=== PATIENT | male | born 1955 | race Caucasian/White ===

== ENCOUNTER 2019-06-22 11:00 | Inpatient (IN) | payer MEDICARE, BC ==
[2019-08-24] MEDS ORDERED: Sodium Chloride 0.9% 10 ML Syringe FLUSH PRN (00:01)
[2019-08-24] MEDS ORDERED: Lidocaine 1%/Sod Bicarbonate in NS 8.4% 1 ML Syringe IDERM PRN (00:01)
[2019-08-24] MEDS ORDERED: Pregabalin 25 MG Cap PO SCH (06:00)
[2019-08-24] MEDS ORDERED: oxyCODONE ER 10 MG TAB.ER PO SCH (06:00)
[2019-08-24] MEDS ORDERED: Acetaminophen 325 MG Tab PO SCH (06:00)
[2019-08-24] MEDS ORDERED: Morphine Sulfate 8 MG, EPINEPHrine 0.3 MG, Cefuroxime 750 MG, Ketorolac 30 MG, Sodium C... PRN ×5 (06:46)
[2019-08-24] MEDS ORDERED: Sennosides 8.6 MG Tab PO PRN (06:48)
[2019-08-24] MEDS ORDERED: Morphine 2 MG/ML Syringe IVPUSH PRN (06:48)
[2019-08-24] MEDS ORDERED: Naloxone 0.4 MG/ML SDV IVPUSH PRN (06:48)
[2019-08-24] MEDS ORDERED: Ondansetron 4 MG/2 ML SDV IVPUSH PRN ×2 (06:48→09:47)
[2019-08-24] MEDS ORDERED: Magnesium Hydroxide 400 MG/5 ML Susp 30 ML Cup PO PRN (06:48)
[2019-08-24] MEDS ORDERED: Bisacodyl 5 MG Tab PO PRN (06:48)
[2019-08-24] MEDS ORDERED: Propofol 200 MG/20 ML SDV ONE ×2 (07:14→09:29)
[2019-08-24] MEDS ORDERED: Midazolam 1 MG/ML 2 ML SDV ONE (07:15)
[2019-08-24] MEDS: Lactated Ringers 1,000 ML IV SCH ×2 (07:25→11:02)
--- NOTE | 2019-08-24 07:40 | PCM.PREANE ---
Preanesthetic Assessment - Anesthesia/Transfusion/Family Hx Anesthesia History: Prior Anesthesia Without Reaction Transfusion History: No Prior Transfusion(s) - Review of Systems General: No Symptoms Pulmonary: No Symptoms Cardiovascular: No Symptoms Gastrointestinal: No Symptoms Neurological: No Symptoms Other: Reports: None - Physical Assessment NPO Status Date: 08/23/19 NPO Status Time: 20:30 Vital Signs: Last Vital Signs Temp 97.9 F 08/24/19 07:00 Pulse 70 08/24/19 07:00 Resp 16 08/24/19 07:00 BP 117/73 08/24/19 07:00 Pulse Ox 94 L 08/24/19 07:00 Height: 1.93 m Weight: 107.955 kg ASA Class: 2 Mental Status: Alert & Oriented x3 Airway Class: Mallampati = 1 Dentition: Reports: Normal Dentition, Moonshine(s) Thyro-Mental Finger Breadths: 3 Mouth Opening Finger Breadths: 3 ROM/Head Extension: Full Lungs: Clear to Auscultation, Normal Respiratory Effort Cardiovascular: Regular Rate, Regular Rhythm - Lab Values: Laboratory Last Values MRSA (PCR) Negative 08/12/19 15:54 - Allergies Allergies/Adverse Reactions: Allergies Allergy/AdvReac Type Severity Reaction Status Date / Time No Known Allergies Allergy Verified 08/24/19 07:40 - Acknowledgements Anesthesia Type Planned: Spinal Pt an Appropriate Candidate for the Planned Anesthesia: Yes Alternatives and Risks of Anesthesia Discussed w Pt/Guardian: Yes Pt/Guardian Understands and Agrees with Anesthesia Plan: Yes PreAnesthesia Questionnaire HEENT History: Reports: Impaired Vision, Sinusitis, Other (See Below) Other HEENT History: tinnitis, wears glasses Cardiovascular History: Reports: High Cholesterol, Hypertension, Other (See Below) Other Cardiovascular History: irregular heart beat Gastrointestinal History: Reports: Cirrhosis, Hemorrhoids, Other (See Below) Other Gastrointestinal History: sclerosing cholangitis, ulcerative colitis Genitourinary History: Reports: Other (See Below) Other Genitourinary History: hematuria Musculoskeletal History: Reports: Osteoarthritis, Osteoporosis, Other (See Below ) Other Musculoskeletal History: bilateral hip pain, carpal tunnel syndrome Neurological History: Reports: None Psychiatric History: Reports: Anxiety, Depression, Other (See Below) Other Psychiatric History: malaise, sleep disturbance Endocrine/Metabolic History: Reports: Diabetes, Type II Hematologic History: Reports: None Immunologic History: Reports: None Oncologic (Cancer) History: Reports: Prostate, Squamous Cell Carcinoma Dermatologic History: Reports: Other (See Below) Other Dermatologic History: squamous cell carcinoma, actinic keratosis - Infectious Disease History Infectious Disease History: Reports: None - Past Surgical History HEENT Surgical History: Reports: Tonsillectomy GI Surgical History: Reports: Appendectomy, Colonoscopy Male Surgical History: Reports: Prostatectomy Musculoskeletal Surgical History: Reports: Other (See Below) Other Musculoskeletal Surgeries/Procedures:: left thumb repair - SUBSTANCE USE Smoking Status *Q: Never Smoker Recreational Drug Use History: No - HOME MEDS Home Medications: Home Meds Calcium/D3/Zinc/Copper/[place] [Citracal-D3 Maximum Plus Caplt] 2 tab PO DAILY [History] Cholecalciferol (Vitamin D3) [Vitamin D3] 5,000 unit PO DAILY 08/23/19 [History] Glucosam/Chondr/Collagn/Hyalur [Glucosamine & Chondroitin Cap] 1 cap PO BID 10/04 [History] Loperamide [Imodium] 2 mg PO ASDIRECTED PRN 08/23/19 [History] Mesalamine 2.4 g PO BID 08/23/19 [History] Multivitamin [Daily Leonardo] 1 tab PO DAILY 08/23/19 [History] lisinopriL [Lisinopril] 10 mg PO DAILY 08/23/19 [History] - CURRENT (IN HOUSE) MEDS Current Meds: Current Medications Acetaminophen (Tylenol) 975 mg PO ONETIME OMAR Stop: 08/24/19 14:00 Last Admin: 08/24/19 07:14 Dose: 975 mg Aspirin (Ecotrin) 325 mg PO BID OMAR Bisacodyl (Dulcolax) 5 mg PO DAILY PRN PRN Reason: Constipation Morphine Sulfate 8 mg/Epinephrine HCl 0.3 mg/Cefuroxime Sodium 750 mg/Ketorolac Tromethamine 30 mg/Sodium Chloride 7.9 ml 0 mg .XX ASDIRECTED PRN PRN Reason: Pain Stop: 08/24/19 12:00 Docusate Sodium (Colace) 100 mg PO BID OMAR Famotidine (Pepcid) 20 mg PO Q12H OMAR Lactated Ringer's (Ringers, Lactated) 1,000 mls @ 125 mls/hr IV ASDIRECTED OMAR Stop: 08/24/19 18:00 Cefazolin Sodium/Dextrose 2 gm (/ Premix) 50 mls @ 100 mls/hr IV Q8H OMAR Stop: 08/24/19 23:29 Ketorolac Tromethamine (Toradol) 15 mg IVPUSH Q6H PRN PRN Reason: Pain Lidocaine/Sodium Bicarbonate (Buffered Lidocaine 1% In Ns 8.4%) 0.25 ml IDERM ONETIME PRN PRN Reason: Prior to IV Start Stop: 08/24/19 18:00 Magnesium Hydroxide (Milk Of Magnesia) 30 ml PO BID PRN PRN Reason: Constipation Morphine Sulfate (Morphine) 2 mg IVPUSH Q2H PRN PRN Reason: Breakthrough Pain Naloxone HCl (Narcan) 0.1 mg IVPUSH Q5M PRN PRN Reason: Oversedation Ondansetron HCl (Zofran) 4 mg IVPUSH Q6H PRN PRN Reason: Nausea/Vomiting Oxycodone HCl (Oxycontin) 10 mg PO ONETIME [facility] Stop: 08/24/19 14:00 Last Admin: 08/24/19 07:14 Dose: 10 mg Oxycodone HCl (Oxycodone) 5 - 10 mg PO Q4H PRN PRN Reason: Pain Pregabalin (Lyrica) 50 mg PO ONETIME OMAR Stop: 08/24/19 14:00 Last Admin: 08/24/19 07:14 Dose: 50 mg Senna (Senna) 8.6 mg PO BID PRN PRN Reason: Constipation Sodium Chloride (Saline Flush) 10 ml FLUSH ASDIRECTED PRN PRN Reason: Keep Vein Open Stop: 08/24/19 18:00 Discontinued Medications Midazolam HCl (Versed 1 Mg/Ml) Confirm Administered Dose 2 mg .ROUTE .STK-MED ONE Stop: 08/24/19 07:16 Propofol (Diprivan 20 Ml) Confirm Administered Dose 400 mg .ROUTE .STK-MED ONE Stop: 08/24/19 07:15
[2019-08-24] MEDS ORDERED: Vancomycin 1 GM SDV ONE (07:41)
[2019-08-24] MEDS ORDERED: Iodine/Sodium Iodide 2% Tincture 30 ML Bottle ONE (07:41)
[2019-08-24] MEDS ORDERED: Bupivacaine 0.25% 10 ML SDV ONE (07:42)
--- NOTE | 2019-08-24 08:19 | PCM.CONS ---
H&P History of Present Illness - General Date of Service: 08/24/19 Admit Problem/Dx: Admission Diagnosis/Problem Admission Diagnosis/Problem Osteoarthritis of hip Source of Information: Patient, Old Records, Provider, RN, RN Notes Reviewed History Limitations: Reports: No Limitations - History of Present Illness Initial Comments - Free Text/Narative: Maxime Fernandes is a 64 yo male patient of Dr. Garcia who is post-operative day 0 of left SCOTT. Hospital medicine was consulted for post-operative medical care of the following listed medical conditions. At this time he is resting comfortably in bed. Pain is controlled. He denies any chest pain, shortness of breath, palpitations, nausea, or vomiting. He carries a history of: PVCs, Anxiety, Depression, Pre-DM, Hematuria, HLD, HTN, Leg numbness, cirrhosis, prostate cancer in remission, squamous cell carcinoma, tinnitus, sclerosing cholangitis, ulcerative colitis, osteoarthritis, osteoporosis, carpal tunnel syndrome, hemorrhoids. He is a non-smoker. He is a full code. His primary care provider is Dr. Downs. - Related Data Allergies/Adverse Reactions: Allergies Allergy/AdvReac Type Severity Reaction Status Date / Time No Known Allergies Allergy Verified 08/24/19 11:34 Home Medications: Home Meds Calcium/D3/Zinc/Copper/[place] [Citracal-D3 Maximum Plus Caplt] 2 tab PO DAILY [History] Cholecalciferol (Vitamin D3) [Vitamin D3] 5,000 unit PO DAILY 08/23/19 [History] Glucosam/Chondr/Collagn/Hyalur [Glucosamine & Chondroitin Cap] 1 cap PO BID 10/04 [History] Loperamide [Imodium] 2 mg PO ASDIRECTED PRN 08/23/19 [History] Mesalamine 2.4 g PO BID 08/23/19 [History] Multivitamin [Daily Leonardo] 1 tab PO DAILY 08/23/19 [History] lisinopriL [Lisinopril] 10 mg PO DAILY 08/23/19 [History] Past Medical History HEENT History: Reports: Impaired Vision, Sinusitis, Other (See Below) Other HEENT History: tinnitis, wears glasses Cardiovascular History: Reports: High Cholesterol, Hypertension, Other (See Below) Other Cardiovascular History: irregular heart beat Respiratory History: Reports: None Gastrointestinal History: Reports: Cirrhosis, Hemorrhoids, Other (See Below) Other Gastrointestinal History: sclerosing cholangitis, ulcerative colitis Genitourinary History: Reports: Other (See Below) Other Genitourinary History: hematuria [employer] History: Reports: None Musculoskeletal History: Reports: Osteoarthritis, Osteoporosis, Other (See Below ) Other Musculoskeletal History: bilateral hip pain, carpal tunnel syndrome Neurological History: Reports: None Psychiatric History: Reports: Anxiety, Depression, Other (See Below) Other Psychiatric History: malaise, sleep disturbance Endocrine/Metabolic History: Reports: Diabetes, Type II Hematologic History: Reports: None Immunologic History: Reports: None Oncologic (Cancer) History: Reports: Prostate, Squamous Cell Carcinoma Dermatologic History: Reports: Other (See Below) Other Dermatologic History: squamous cell carcinoma, actinic keratosis - Infectious Disease History Infectious Disease History: Reports: None - Past Surgical History HEENT Surgical History: Reports: Tonsillectomy GI Surgical History: Reports: Appendectomy, Colonoscopy Male Surgical History: Reports: Prostatectomy Musculoskeletal Surgical History: Reports: Other (See Below) Other Musculoskeletal Surgeries/Procedures:: left thumb repair Social & Family History - Tobacco Use Smoking Status *Q: Never Smoker - Caffeine Use Caffeine Use: Reports: Soda - Recreational Drug Use Recreational Drug Use: No H&P Review of Systems - Review of Systems: Review Of Systems: See Below General: Reports: No Symptoms. Denies: Fever, Chills HEENT: Reports: No Symptoms. Denies: Headaches, Sore Throat Pulmonary: Reports: No Symptoms. Denies: Shortness of Breath, Wheezing, Cough, Sputum Cardiovascular: Reports: No Symptoms. Denies: Chest Pain, Palpitations, Dyspnea on Exertion Gastrointestinal: Reports: No Symptoms. Denies: Abdominal Pain, Constipation, Diarrhea, Nausea, Vomiting Genitourinary: Reports: No Symptoms. Denies: Pain Musculoskeletal: Reports: Leg Pain Skin: Reports: No Symptoms. Denies: Cyanosis Psychiatric: Reports: No Symptoms. Denies: Confusion Neurological: Reports: Difficulty Walking, Gait Disturbance Hematologic/Lymphatic: Reports: No Symptoms. Denies: Anemia Immunologic: Reports: No Symptoms Exam - Exam Exam: See Below - Vital Signs Vital Signs: Last Vital Signs Temp 97.9 F 08/24/19 07:00 Pulse 70 08/24/19 07:00 Resp 16 08/24/19 07:00 BP 117/73 08/24/19 07:00 Pulse Ox 94 L 08/24/19 07:00 Weight: 238 lb - Exam Quality Assessment: DVT Prophylaxis General: Alert, Oriented, Cooperative. No: Mild Distress HEENT: Conjunctiva Clear, EACs Clear, Hearing Intact, Mucosa Moist & [place], Normal Nasal Septum, Posterior Pharynx Clear, PERRLA Neck: Supple, Trachea Midline Lungs: Clear to Auscultation, Normal Respiratory Effort Cardiovascular: Regular Rate, Regular Rhythm GI/Abdominal Exam: Normal Bowel Sounds, Soft, Non-Tender, No Distention, No Abnormal Bruit (Male) Exam: Deferred Rectal (Males) Exam: Deferred Back Exam: Normal Inspection, Full Range of Motion Extremities: Normal Capillary Refill, Leg Pain, Limited Range of Motion, Other ( Bandage in place on left leg. Bandage is dry and intact. Cooling pack in place. ) Peripheral Pulses: 3+: Radial (L), Radial (R), Dorsalis Pedis (L), Dorsalis Pedis (R) Skin: Warm, Dry, Intact Neurological: Cranial Nerves Intact (grossly ) Neuro Extensive - Mental Status: Alert, Oriented x3, Normal Mood/Affect Sepsis Event Note - Evaluation Sepsis Screening Result: No Definite Risk - Focused Exam Vital Signs: Vital Signs Temp Pulse Resp BP Pulse Ox 08/24/19 07:00 97.9 F 70 16 117/73 94 L Date Exam was Performed: 08/24/19 Time Exam was Performed: 15:34 Consult PN Assessment/Plan POD#: 0 (1) S/P total hip arthroplasty SNOMED Code(s): 621085984557, 509157569257 Code(s): Z96.649 - PRESENCE OF UNSPECIFIED ARTIFICIAL HIP JOINT Priority: High Current Visit: Yes Qualifiers: Laterality: left Qualified Code(s): Z96.642 - Presence of left artificial hip joint (2) Osteoarthritis SNOMED Code(s): 589432097 Code(s): M19.90 - UNSPECIFIED OSTEOARTHRITIS, UNSPECIFIED SITE Priority: High Current Visit: Yes Qualifiers: Osteoarthritis location: hip Osteoarthritis type: primary Laterality: left Qualified Code(s): M16.12 - Unilateral primary osteoarthritis, left hip (3) PVCs (premature ventricular contractions) SNOMED Code(s): 00781442 Code(s): I49.3 - VENTRICULAR PREMATURE DEPOLARIZATION Priority: Medium Current Visit: No (4) Anxiety SNOMED Code(s): 95863030 Code(s): F41.9 - ANXIETY DISORDER, UNSPECIFIED Priority: Low Current Visit: No (5) Depression SNOMED Code(s): 35812491 Code(s): F32.9 - MAJOR DEPRESSIVE DISORDER, SINGLE EPISODE, UNSPECIFIED Priority: Low Current Visit: No Qualifiers: Depression Type: other depression Qualified Code(s): F32.89 - Other specified depressive episodes (6) Type II diabetes mellitus SNOMED Code(s): 39564382 Code(s): E11.9 - TYPE 2 DIABETES MELLITUS WITHOUT COMPLICATIONS Priority: Medium Current Visit: Yes Qualifiers: Diabetes mellitus fdc insulin use: unspecified fdc insulin use status Diabetes mellitus complication status: with other specified complication Qualified Code(s): E11.69 - Type 2 diabetes mellitus with other specified complication (7) Hematuria SNOMED Code(s): 47976813 Code(s): R31.9 - HEMATURIA, UNSPECIFIED Priority: Low Current Visit: No Qualifiers: Hematuria type: unspecified type Qualified Code(s): R31.9 - Hematuria, unspecified (8) HLD (hyperlipidemia) SNOMED Code(s): 21791805 Code(s): E78.5 - HYPERLIPIDEMIA, UNSPECIFIED Priority: Low Current Visit : No Qualifiers: Hyperlipidemia type: unspecified Qualified Code(s): E78.5 - Hyperlipidemia , unspecified (9) HTN (hypertension) SNOMED Code(s): 98121023 Code(s): I10 - ESSENTIAL (PRIMARY) HYPERTENSION Priority: Medium Current Visit: No Qualifiers: Hypertension type: unspecified Qualified Code(s): I10 - Essential (primary ) hypertension (10) Leg numbness Priority: Low Current Visit: No (11) Cirrhosis SNOMED Code(s): 31615517 Code(s): K74.60 - UNSPECIFIED CIRRHOSIS OF LIVER Priority: Medium Current Visit: No Qualifiers: Hepatic cirrhosis type: unspecified hepatic cirrhosis Ascites presence: unspecified Qualified Code(s): K74.60 - Unspecified cirrhosis of liver (12) History of prostate cancer SNOMED Code(s): 449586508 Code(s): Z85.46 - PERSONAL HISTORY OF MALIGNANT NEOPLASM OF PROSTATE Priority: Low Current Visit: No (13) Sclerosing cholangitis SNOMED Code(s): 074894805 Code(s): K83.09 - OTHER CHOLANGITIS Priority: Medium Current Visit: No (14) Hemorrhoids SNOMED Code(s): 38349171 Code(s): K64.9 - UNSPECIFIED HEMORRHOIDS Priority: Low Current Visit: No Qualifiers: Hemorrhoid type: unspecified Qualified Code(s): K64.9 - Unspecified hemorrhoids (15) Ulcerative colitis SNOMED Code(s): 76927150 Code(s): K51.90 - ULCERATIVE COLITIS, UNSPECIFIED, WITHOUT COMPLICATIONS Priority: Medium Current Visit: No Qualifiers: Ulcerative colitis location: unspecified ulcerative colitis location Digestive disease complication type: unspecified complication Qualified Code(s ): K51.919 - Ulcerative colitis, unspecified with unspecified complications (16) Squamous cell carcinoma SNOMED Code(s): 219235294 Code(s): KAG6241 - Priority: Low Current Visit: No (17) Tinnitus SNOMED Code(s): 58811100, 719568164 Code(s): H93.19 - TINNITUS, UNSPECIFIED EAR Priority: Low Current Visit: No Qualifiers: Laterality: unspecified laterality Qualified Code(s): H93.19 - Tinnitus, unspecified ear (18) Carpal tunnel syndrome SNOMED Code(s): 75708422 Code(s): G56.00 - CARPAL TUNNEL SYNDROME, UNSPECIFIED UPPER LIMB Priority: Low Current Visit: No Qualifiers: Laterality: unspecified laterality Qualified Code(s): G56.00 - Carpal tunnel syndrome, unspecified upper limb Problem List Initiated/Reviewed/Updated: Yes Plan: I/P: Acute: S/P left total hip arthroplasty - post-operative day 0 -DVT prophylaxis and pain management per primary care team -PT/OT -IS/RT -Monitor oxygen saturation -Titrate oxygen as needed -Home medications reviewed -Vital signs stable -Monitor labs -Pre-operative Hgb was 17.5 -Pre-operative GFR was 57 -Pre-operative BUN was 19 -Pre-operative Total bilirubin was 1.20 -Pre-operative direct bilirubin was 0.31 -Pre-operative AST was 58 -Pre-operative ALT was 77 -Pre-operative Alk Phos was 164 -Pre-operative A1C was 6.2% -Pre-operative 12-lead EKG showed NSR with PVCs Osteoarthritis of left hip -Pain management per primary care team Chronic: PVCs Anxiety Depression Pre-DM Hematuria HLD HTN Leg numbness Cirrhosis Prostate cancer in remission Squamous cell carcinoma Tinnitus Sclerosing cholangitis Ulcerative colitis Osteoarthritis Osteoporosis Carpal tunnel syndrome Hemorrhoids Plan: CM for discharge planning GI prophylaxis Home medications as indicated Other orders as listed above Routine AM labs He is a full code. His PCP is Dr. Downs Thank you for allowing us to participate in the care of this patient!! Requesting Provider: Dr. Garcia Date Consult Requested: 08/24/19 Patient History Reviewed: Yes Admission H&P Reviewed: Yes Notified Requestor: Yes
[2019-08-24] MEDS ORDERED: Lactated Ringers 1,000 ML ONE (08:32)
[2019-08-24] MEDS ORDERED: ceFAZolin 1 GM Vial ONE (08:45)
[2019-08-24] MEDS ORDERED: Ondansetron 4 MG/2 ML SDV ONE (09:31)
[2019-08-24] MEDS: ceFAZolin 1 GM Vial ONE ×2 (09:36→09:37)
[2019-08-24] MEDS ORDERED: fentaNYL 100 MCG/2 ML SDV IVPUSH PRN (09:47)
[2019-08-24] MEDS ORDERED: HYDROmorphone 0.5 MG/0.5 ML Syringe IVPUSH PRN (09:47)
[2019-08-24] MEDS ORDERED: Loperamide 2 MG Cap PO PRN (10:15)
--- NOTE | 2019-08-24 10:21 | PCM.POSTAN ---
POST ANESTHESIA ASSESSMENT - MENTAL STATUS Mental Status: Somnolent - VITAL SIGNS Vital Signs: Last Vital Signs Temp 97.5 F 08/24/19 10:11 Pulse 70 08/24/19 07:00 Resp 18 08/24/19 10:11 BP 104/65 08/24/19 10:11 Pulse Ox 93 L 08/24/19 10:11 - RESPIRATORY Respiratory Status: Respiratory Rate WNL, Airway Patent, O2 Saturation Stable, Supplemental Oxygen - CARDIOVASCULAR CV Status: Pulse Rate WNL, Blood Pressure Stable - GASTROINTESTINAL GI Status: No Symptoms - PAIN Pain Score: 0 (post SAB) - POST OP HYDRATION Hydration Status: Adequate & Stable
--- NOTE | 2019-08-24 11:10 | CR ---
Pelvis and left hip: AP view of the pelvis was obtained as well as AP and crosstable lateral views left hip. Left hip prosthesis is seen. This has been recently placed. Components appear aligned. Underlying bony structures are intact. Multiple surgical clips are seen within the pelvis. Degenerative change partially visualized within the lumbar spine. Minimal joint space narrowing is noted with the right hip. Impression: 1. Recently placed left hip prosthesis. 2. Other nonacute findings as noted above. Diagnostic code #2 This report was dictated in MDT
[2019-08-24] MEDS: oxyCODONE 5 MG Tab PO PRN ×2 (13:58→20:26)
[2019-08-24] MEDS: ceFAZolin 2 GM in Premix Bag 1 BAG IV SCH (17:02)
[2019-08-24] MEDS: Ketorolac 15 MG/ML SDV IVPUSH PRN (17:14)
[2019-08-24] MEDS: Docusate Sodium 100 MG Cap PO SCH (20:25)
[2019-08-24] MEDS: Famotidine 20 MG Tab PO SCH (20:25)
[2019-08-24] MEDS: Acetaminophen 325 MG Tab PO PRN (20:25)
[2019-08-24] MEDS: MESALAMINE 2.4 GM PO SCH (21:50)
[2019-08-25] MEDS: Ketorolac 15 MG/ML SDV IVPUSH PRN (00:28)
[2019-08-25] MEDS: Acetaminophen 325 MG Tab PO PRN ×2 (00:28→05:06)
[2019-08-25] MEDS: oxyCODONE 5 MG Tab PO PRN ×2 (00:29→05:07)
[2019-08-25] MEDS: ceFAZolin 2 GM in Premix Bag 1 BAG IV SCH ×2 (00:30→08:56)
--- NOTE | 2019-08-25 07:52 | PCM.CONSN ---
- General Info Date of Service: 08/25/19 Admission Dx/Problem (Free Text): Admission Diagnosis/Problem Admission Diagnosis/Problem Osteoarthritis of hip Functional Status: Reports: Pain Controlled, Tolerating Diet, Ambulating, Urinating, Incentive Spirometry. Denies: New Symptoms - Review of Systems General: Reports: No Symptoms. Denies: Fever, Chills HEENT: Reports: No Symptoms. Denies: Headaches, Sore Throat Pulmonary: Reports: No Symptoms. Denies: Shortness of Breath, Cough, Sputum, Wheezing Cardiovascular: Reports: No Symptoms. Denies: Chest Pain, Palpitations, Dyspnea on Exertion Gastrointestinal: Reports: No Symptoms. Denies: Abdominal Pain, Constipation, Diarrhea, Nausea, Vomiting Genitourinary: Reports: No Symptoms. Denies: Pain Musculoskeletal: Reports: Leg Pain Skin: Reports: No Symptoms. Denies: Cyanosis Neurological: Reports: Difficulty Walking, Gait Disturbance. Denies: Confusion Psychiatric: Reports: No Symptoms - Patient Data Vitals - Most Recent: Last Vital Signs Temp 98.1 F 08/25/19 04:48 Pulse 79 08/25/19 04:48 Resp 18 08/25/19 04:48 BP 116/70 08/25/19 04:48 Pulse Ox 92 L 08/25/19 04:48 Weight - Most Recent: 244 lb 8 oz I&O - Last 24 Hours: Intake & Output 08/24/19 08/25/19 08/25/19 22:59 06:59 14:59 Intake Total 1060 1050 Output Total 1000 1700 Balance 60 -650 Lab Results Last 24 Hours: Laboratory Results - last 24 hr 08/24/19 08/25/19 08/25/19 Range/Units 07:28 05:42 05:44 WBC 7.85 (4.23-9.07) K/mm3 RBC 4.94 (4.63-6.08) M/mm3 Hgb 15.6 (13.7-17.5) gm/dl Hct 46.5 (40.1-51.0) % MCV 94.1 H (79.0-92.2) fl MCH 31.6 (25.7-32.2) pg MCHC 33.5 (32.2-35.5) g/dl RDW Std Deviation 47.9 H (35.1-43.9) fL Plt Count 126 L (163-337) K/mm3 MPV 10.0 (9.4-12.3) fl Sodium 137 (136-145) mEq/L Potassium 4.4 (3.5-5.1) mEq/L Chloride 102 (98-107) mEq/L Carbon Dioxide 26 (21-32) mEq/L Anion Gap 13.4 (5-15) BUN 18 (7-18) mg/dL Creatinine 1.4 H (0.7-1.3) mg/dL Est Cr Clr Drug Dosing 63.72 mL/min Estimated GFR (MDRD) 51 (>60) mL/min BUN/Creatinine Ratio 12.9 L (14-18) Glucose 141 H (80-115) mg/dL Calcium 8.5 (8.5-10.1) mg/dL Total Bilirubin 1.3 H (0.2-1.0) mg/dL AST 47 H (15-37) U/L ALT 56 (16-63) U/L Alkaline Phosphatase 123 H (46-116) U/L Total Protein 6.7 (6.4-8.2) g/dl Albumin 3.3 L (3.4-5.0) g/dl Globulin 3.4 gm/dL Albumin/Globulin Ratio 1.0 (1-2) Blood Type A POSITIVE Gel Antibody Screen Negative Med Orders - Current: Current Medications Acetaminophen (Tylenol) 650 mg PO Q4H PRN PRN Reason: Pain Last Admin: 08/25/19 05:06 Dose: 650 mg Aspirin (Ecotrin) 325 mg PO BID [facility] Bisacodyl (Dulcolax) 5 mg PO DAILY PRN PRN Reason: Constipation Cholecalciferol (Vitamin D3) 5,000 unit PO DAILY [facility] Docusate Sodium (Colace) 100 mg PO BID [facility] Last Admin: 08/24/19 20:25 Dose: 100 mg Famotidine (Pepcid) 20 mg PO Q12H [facility] Last Admin: 08/24/19 20:25 Dose: 20 mg Cefazolin Sodium/Dextrose 2 gm (/ Premix) 50 mls @ 100 mls/hr IV Q8H OMAR Stop: 08/25/19 09:14 Last Admin: 08/25/19 00:30 Dose: 100 mls/hr Ketorolac Tromethamine (Toradol) 15 mg IVPUSH Q6H PRN PRN Reason: Pain Last Admin: 08/25/19 00:28 Dose: 15 mg Lisinopril (Prinivil) 10 mg PO DAILY [facility] Loperamide HCl (Imodium) 2 mg PO ASDIRECTED PRN PRN Reason: Diarrhea Magnesium Hydroxide (Milk Of Magnesia) 30 ml PO BID PRN PRN Reason: Constipation Morphine Sulfate (Morphine) 2 mg IVPUSH Q2H PRN PRN Reason: Breakthrough Pain Multivitamins (Thera) 1 each PO DAILY [facility] Naloxone HCl (Narcan) 0.1 mg IVPUSH Q5M PRN PRN Reason: Oversedation Ondansetron HCl (Zofran) 4 mg IVPUSH Q6H PRN PRN Reason: Nausea/Vomiting Oxycodone HCl (Oxycodone) 5 - 10 mg PO Q4H PRN PRN Reason: Pain Last Admin: 08/25/19 05:07 Dose: 10 mg Mesalamine [ (Mesalamine] 2.4 G) 0 each PO BID [facility] Last Admin: 08/24/19 21:50 Dose: Not Given Senna (Senna) 8.6 mg PO BID PRN PRN Reason: Constipation Discontinued Medications Acetaminophen (Tylenol) 975 mg PO ONETIME [facility] Stop: 08/24/19 14:00 Last Admin: 08/24/19 07:14 Dose: 975 mg Bupivacaine HCl (Sensorcaine-Mpf 0.25%) Confirm Administered Dose 30 ml .ROUTE .STK-MED ONE Stop: 08/24/19 07:43 Last Admin: 08/24/19 09:41 Dose: 30 ml Cefazolin Sodium (Ancef) Confirm Administered Dose 2 gm .ROUTE .STK-MED ONE Stop: 08/24/19 07:43 Last Admin: 08/24/19 09:37 Dose: 2 gm Cefazolin Sodium (Ancef) Confirm Administered Dose 2 gm .ROUTE .STK-MED ONE Stop: 08/24/19 08:46 Morphine Sulfate 8 mg/Epinephrine HCl 0.3 mg/Cefuroxime Sodium 750 mg/Ketorolac Tromethamine 30 mg/Sodium Chloride 7.9 ml 0 mg .XX ASDIRECTED PRN PRN Reason: Pain Stop: 08/24/19 12:00 Last Admin: 08/24/19 09:41 Dose: 788.3 mg Fentanyl (Sublimaze) 50 mcg IVPUSH Q5M PRN PRN Reason: Pain Stop: 08/24/19 12:00 Hydromorphone HCl (Dilaudid) 0.5 mg IVPUSH Q10M PRN PRN Reason: Pain (severe 7-10) Stop: 08/24/19 12:00 Lactated Ringer's (Ringers, Lactated) 1,000 mls @ 125 mls/hr IV ASDIRECTED [facility] Stop: 08/24/19 18:00 Last Admin: 08/24/19 11:02 Dose: 125 mls/hr Lactated Ringer's (Ringers, Lactated) Confirm Administered Dose 1,000 mls @ as directed .ROUTE .STK-MED ONE Stop: 08/24/19 08:33 Iodine (Iodine 2% Mild Tincture) Confirm Administered Dose 30 ml .ROUTE .STK- MED ONE Stop: 08/24/19 07:42 Last Admin: 08/24/19 09:35 Dose: 18 ml Lidocaine/Sodium Bicarbonate (Buffered Lidocaine 1% In Ns 8.4%) 0.25 ml IDERM ONETIME PRN PRN Reason: Prior to IV Start Stop: 08/24/19 18:00 Last Admin: 08/24/19 07:25 Dose: 0.25 ml Midazolam HCl (Versed 1 Mg/Ml) Confirm Administered Dose 2 mg .ROUTE .STK-MED ONE Stop: 08/24/19 07:16 Miscellaneous Medication (Phenylephrine 1 Mg/10 Ml-Ns) Confirm Administered Dose 1 mg IV .STK-MED ONE Stop: 08/24/19 08:43 Non-Formulary Medication (Calcium/D3/Zinc/Copper/[place] [Citracal-D3 Maximum Plus Caplt]) 2 tab PO DAILY [facility] Ondansetron HCl (Zofran) Confirm Administered Dose 4 mg .ROUTE .STK-MED ONE Stop: 08/24/19 09:32 Ondansetron HCl (Zofran) 4 mg IVPUSH ONETIME PRN PRN Reason: Nausea/Vomiting Stop: 08/24/19 12:00 Oxycodone HCl (Oxycontin) 10 mg PO ONETIME [facility] Stop: 08/24/19 14:00 Last Admin: 08/24/19 07:14 Dose: 10 mg Pregabalin (Lyrica) 50 mg PO ONETIME [facility] Stop: 08/24/19 14:00 Last Admin: 08/24/19 07:14 Dose: 50 mg Propofol (Diprivan 20 Ml) Confirm Administered Dose 400 mg .ROUTE .STK-MED ONE Stop: 08/24/19 07:15 Propofol (Diprivan 20 Ml) Confirm Administered Dose 400 mg .ROUTE .STK-MED ONE Stop: 08/24/19 09:30 Sodium Chloride (Saline Flush) 10 ml FLUSH ASDIRECTED PRN PRN Reason: Keep Vein Open Stop: 08/24/19 18:00 Tranexamic Acid (Cyklokapron) Confirm Administered Dose 1,000 mg .ROUTE .STK- MED ONE Stop: 08/24/19 07:42 Last Admin: 08/24/19 09:43 Dose: 1,000 mg Vancomycin HCl (Vancomycin) Confirm Administered Dose 1 gm .ROUTE .STK-MED ONE Stop: 08/24/19 07:42 Last Admin: 08/24/19 09:42 Dose: 1 gm - Exam Quality Assessment: DVT Prophylaxis. No: Supplemental Oxygen General: Alert, Oriented, Cooperative, No Acute Distress HEENT: Pupils Equal, Pupils Reactive, Mucous Membr. Moist/[place] Neck: Supple, Trachea Midline Lungs: Clear to Auscultation, Normal Respiratory Effort Cardiovascular: Regular Rate, Regular Rhythm GI/Abdominal Exam: Normal Bowel Sounds, Soft, Non-Tender, No Distention (Male) Exam: Deferred Back Exam: Normal Inspection, Full Range of Motion Extremities: Normal Capillary Refill, Leg Pain, Limited Range of Motion, Other ( Bandage in place on left leg. Cooling pack in place. ) Peripheral Pulses: 2+: Radial (L), Radial (R), Dorsalis Pedis (L), Dorsalis Pedis (R) Skin: Warm, Dry, Intact Wound/Incisions: Dressing Dry and Intact Neurological: No New Focal Deficit Psy/Mental Status: Alert, Normal Affect, Normal Mood Consult PN Assessment/Plan POD#: 1 (1) S/P total hip arthroplasty SNOMED Code(s): 774367359596, 683294326280 Code(s): Z96.649 - PRESENCE OF UNSPECIFIED ARTIFICIAL HIP JOINT Priority: High Current Visit: Yes Qualifiers: Laterality: left Qualified Code(s): Z96.642 - Presence of left artificial hip joint (2) Osteoarthritis SNOMED Code(s): 614147661 Code(s): M19.90 - UNSPECIFIED OSTEOARTHRITIS, UNSPECIFIED SITE Priority: High Current Visit: Yes Qualifiers: Osteoarthritis location: hip Osteoarthritis type: primary Laterality: left Qualified Code(s): M16.12 - Unilateral primary osteoarthritis, left hip (3) PVCs (premature ventricular contractions) SNOMED Code(s): 18189903 Code(s): I49.3 - VENTRICULAR PREMATURE DEPOLARIZATION Priority: Medium Current Visit: No (4) Anxiety SNOMED Code(s): 57123986 Code(s): F41.9 - ANXIETY DISORDER, UNSPECIFIED Priority: Low Current Visit: No (5) Depression SNOMED Code(s): 51830070 Code(s): F32.9 - MAJOR DEPRESSIVE DISORDER, SINGLE EPISODE, UNSPECIFIED Priority: Low Current Visit: No Qualifiers: Depression Type: other depression Qualified Code(s): F32.89 - Other specified depressive episodes (6) Type II diabetes mellitus SNOMED Code(s): 23524430 Code(s): E11.9 - TYPE 2 DIABETES MELLITUS WITHOUT COMPLICATIONS Priority: Medium Current Visit: Yes Qualifiers: Diabetes mellitus retirement insulin use: unspecified retirement insulin use status Diabetes mellitus complication status: with other specified complication Qualified Code(s): E11.69 - Type 2 diabetes mellitus with other specified complication (7) Hematuria SNOMED Code(s): 35513378 Code(s): R31.9 - HEMATURIA, UNSPECIFIED Priority: Low Current Visit: No Qualifiers: Hematuria type: unspecified type Qualified Code(s): R31.9 - Hematuria, unspecified (8) HLD (hyperlipidemia) SNOMED Code(s): 77410618 Code(s): E78.5 - HYPERLIPIDEMIA, UNSPECIFIED Priority: Low Current Visit : No Qualifiers: Hyperlipidemia type: unspecified Qualified Code(s): E78.5 - Hyperlipidemia , unspecified (9) HTN (hypertension) SNOMED Code(s): 46784284 Code(s): I10 - ESSENTIAL (PRIMARY) HYPERTENSION Priority: Medium Current Visit: No Qualifiers: Hypertension type: unspecified Qualified Code(s): I10 - Essential (primary ) hypertension (10) Leg numbness Priority: Low Current Visit: No (11) Cirrhosis SNOMED Code(s): 31496989 Code(s): K74.60 - UNSPECIFIED CIRRHOSIS OF LIVER Priority: Medium Current Visit: No Qualifiers: Hepatic cirrhosis type: unspecified hepatic cirrhosis Ascites presence: unspecified Qualified Code(s): K74.60 - Unspecified cirrhosis of liver (12) History of prostate cancer SNOMED Code(s): 435626263 Code(s): Z85.46 - PERSONAL HISTORY OF MALIGNANT NEOPLASM OF PROSTATE Priority: Low Current Visit: No (13) Sclerosing cholangitis SNOMED Code(s): 106019417 Code(s): K83.09 - OTHER CHOLANGITIS Priority: Medium Current Visit: No (14) Hemorrhoids SNOMED Code(s): 43627735 Code(s): K64.9 - UNSPECIFIED HEMORRHOIDS Priority: Low Current Visit: No Qualifiers: Hemorrhoid type: unspecified Qualified Code(s): K64.9 - Unspecified hemorrhoids (15) Ulcerative colitis SNOMED Code(s): 57972663 Code(s): K51.90 - ULCERATIVE COLITIS, UNSPECIFIED, WITHOUT COMPLICATIONS Priority: Medium Current Visit: No Qualifiers: Ulcerative colitis location: unspecified ulcerative colitis location Digestive disease complication type: unspecified complication Qualified Code(s ): K51.919 - Ulcerative colitis, unspecified with unspecified complications (16) Squamous cell carcinoma SNOMED Code(s): 272215481 Code(s): ASY6275 - Priority: Low Current Visit: No (17) Tinnitus SNOMED Code(s): 95695351, 204457588 Code(s): H93.19 - TINNITUS, UNSPECIFIED EAR Priority: Low Current Visit: No Qualifiers: Laterality: unspecified laterality Qualified Code(s): H93.19 - Tinnitus, unspecified ear (18) Carpal tunnel syndrome SNOMED Code(s): 66868485 Code(s): G56.00 - CARPAL TUNNEL SYNDROME, UNSPECIFIED UPPER LIMB Priority: Low Current Visit: No Qualifiers: Laterality: unspecified laterality Qualified Code(s): G56.00 - Carpal tunnel syndrome, unspecified upper limb Problem List Initiated/Reviewed/Updated: Yes Plan: I/P: Acute: S/P left total hip arthroplasty - post-operative day 1 -DVT prophylaxis and pain management per primary care team -PT/OT -IS/RT -Monitor oxygen saturation -Titrate oxygen as needed -Home medications reviewed -Vital signs stable -Monitor labs -Pre-operative Hgb was 17.5; Now 15.6 -Pre-operative GFR was 57; Now 51 -Pre-operative BUN was 19; Now 18 -Pre-operative Total bilirubin was 1.20; Now 1.3 -Pre-operative direct bilirubin was 0.31 -Pre-operative AST was 58; Now 47 -Pre-operative ALT was 77; Now 56 -Pre-operative Alk Phos was 164; Now 123 -Pre-operative A1C was 6.2% -Pre-operative 12-lead EKG showed NSR with PVCs Osteoarthritis of left hip -Pain management per primary care team Chronic: PVCs Anxiety Depression Pre-DM Hematuria HLD HTN Leg numbness Cirrhosis Prostate cancer in remission Squamous cell carcinoma Tinnitus Sclerosing cholangitis Ulcerative colitis Osteoarthritis Osteoporosis Carpal tunnel syndrome Hemorrhoids Plan: CM for discharge planning GI prophylaxis Home medications as indicated Other orders as listed above Routine AM labs He is a full code. His PCP is Dr. Downs From a hospitalist standpoint Maxime is doing well. He has been up ambulating and working with therapies. He is off of oxygen and has urinated. His labs and vital signs remain stable. His pain is controlled. He is cleared for discharge pending primary team and PT/OT agreement. Thank you for allowing us to participate in the care of this patient!! Sepsis Event Note - Evaluation Sepsis Screening Result: No Definite Risk - Focused Exam Vital Signs: Vital Signs Temp Pulse Resp BP Pulse Ox Pulse Ox 08/25/19 04:48 98.1 F 79 18 116/70 92 L 08/25/19 01:08 98.1 F 77 18 122/66 94 L 08/24/19 21:31 94 L Date Exam was Performed: 08/25/19 Time Exam was Performed: 09:17
--- NOTE | 2019-08-25 08:20 | PCM.SURGPN ---
- General Info Date of Service: 08/25/19 POD#: 1 Functional Status: Reports: Pain Controlled, Tolerating Diet, Ambulating, Urinating, Incentive Spirometry, Other (The pt states he is doing well.) - Patient Data Vitals - Most Recent: Last Vital Signs Temp 98.1 F 08/25/19 04:48 Pulse 79 08/25/19 04:48 Resp 18 08/25/19 04:48 BP 116/70 08/25/19 04:48 Pulse Ox 92 L 08/25/19 04:48 Weight - Most Recent: 244 lb 8 oz I&O - Last 24 Hours: Intake & Output 08/24/19 08/25/19 08/25/19 22:59 06:59 14:59 Intake Total 1060 1050 Output Total 1000 1700 Balance 60 -650 Lab Results Last 24 Hrs: Laboratory Results - last 24 hr 08/24/19 08/25/19 08/25/19 Range/Units 07:28 05:42 05:44 WBC 7.85 (4.23-9.07) K/mm3 RBC 4.94 (4.63-6.08) M/mm3 Hgb 15.6 (13.7-17.5) gm/dl Hct 46.5 (40.1-51.0) % MCV 94.1 H (79.0-92.2) fl MCH 31.6 (25.7-32.2) pg MCHC 33.5 (32.2-35.5) g/dl RDW Std Deviation 47.9 H (35.1-43.9) fL Plt Count 126 L (163-337) K/mm3 MPV 10.0 (9.4-12.3) fl Sodium 137 (136-145) mEq/L Potassium 4.4 (3.5-5.1) mEq/L Chloride 102 (98-107) mEq/L Carbon Dioxide 26 (21-32) mEq/L Anion Gap 13.4 (5-15) BUN 18 (7-18) mg/dL Creatinine 1.4 H (0.7-1.3) mg/dL Est Cr Clr Drug Dosing 63.72 mL/min Estimated GFR (MDRD) 51 (>60) mL/min BUN/Creatinine Ratio 12.9 L (14-18) Glucose 141 H (80-115) mg/dL Calcium 8.5 (8.5-10.1) mg/dL Total Bilirubin 1.3 H (0.2-1.0) mg/dL AST 47 H (15-37) U/L ALT 56 (16-63) U/L Alkaline Phosphatase 123 H (46-116) U/L Total Protein 6.7 (6.4-8.2) g/dl Albumin 3.3 L (3.4-5.0) g/dl Globulin 3.4 gm/dL Albumin/Globulin Ratio 1.0 (1-2) Blood Type A POSITIVE Gel Antibody Screen Negative Med Orders - Current: Current Medications Acetaminophen (Tylenol) 650 mg PO Q4H PRN PRN Reason: Pain Last Admin: 08/25/19 05:06 Dose: 650 mg Aspirin (Ecotrin) 325 mg PO BID [facility] Bisacodyl (Dulcolax) 5 mg PO DAILY PRN PRN Reason: Constipation Cholecalciferol (Vitamin D3) 5,000 unit PO DAILY [facility] Docusate Sodium (Colace) 100 mg PO BID [facility] Last Admin: 08/24/19 20:25 Dose: 100 mg Famotidine (Pepcid) 20 mg PO Q12H [facility] Last Admin: 08/24/19 20:25 Dose: 20 mg Cefazolin Sodium/Dextrose 2 gm (/ Premix) 50 mls @ 100 mls/hr IV Q8H [facility] Stop: 08/25/19 09:14 Last Admin: 08/25/19 00:30 Dose: 100 mls/hr Ketorolac Tromethamine (Toradol) 15 mg IVPUSH Q6H PRN PRN Reason: Pain Last Admin: 08/25/19 00:28 Dose: 15 mg Lisinopril (Prinivil) 10 mg PO DAILY [facility] Loperamide HCl (Imodium) 2 mg PO ASDIRECTED PRN PRN Reason: Diarrhea Magnesium Hydroxide (Milk Of Magnesia) 30 ml PO BID PRN PRN Reason: Constipation Morphine Sulfate (Morphine) 2 mg IVPUSH Q2H PRN PRN Reason: Breakthrough Pain Multivitamins (Thera) 1 each PO DAILY [facility] Naloxone HCl (Narcan) 0.1 mg IVPUSH Q5M PRN PRN Reason: Oversedation Ondansetron HCl (Zofran) 4 mg IVPUSH Q6H PRN PRN Reason: Nausea/Vomiting Oxycodone HCl (Oxycodone) 5 - 10 mg PO Q4H PRN PRN Reason: Pain Last Admin: 08/25/19 05:07 Dose: 10 mg Mesalamine [ (Mesalamine] 2.4 G) 0 each PO BID [facility] Last Admin: 08/24/19 21:50 Dose: Not Given Senna (Senna) 8.6 mg PO BID PRN PRN Reason: Constipation Discontinued Medications Acetaminophen (Tylenol) 975 mg PO ONETIME [facility] Stop: 08/24/19 14:00 Last Admin: 08/24/19 07:14 Dose: 975 mg Bupivacaine HCl (Sensorcaine-Mpf 0.25%) Confirm Administered Dose 30 ml .ROUTE .STK-MED ONE Stop: 08/24/19 07:43 Last Admin: 08/24/19 09:41 Dose: 30 ml Cefazolin Sodium (Ancef) Confirm Administered Dose 2 gm .ROUTE .STK-MED ONE Stop: 08/24/19 07:43 Last Admin: 08/24/19 09:37 Dose: 2 gm Cefazolin Sodium (Ancef) Confirm Administered Dose 2 gm .ROUTE .STK-MED ONE Stop: 08/24/19 08:46 Morphine Sulfate 8 mg/Epinephrine HCl 0.3 mg/Cefuroxime Sodium 750 mg/Ketorolac Tromethamine 30 mg/Sodium Chloride 7.9 ml 0 mg .XX ASDIRECTED PRN PRN Reason: Pain Stop: 08/24/19 12:00 Last Admin: 08/24/19 09:41 Dose: 788.3 mg Fentanyl (Sublimaze) 50 mcg IVPUSH Q5M PRN PRN Reason: Pain Stop: 08/24/19 12:00 Hydromorphone HCl (Dilaudid) 0.5 mg IVPUSH Q10M PRN PRN Reason: Pain (severe 7-10) Stop: 08/24/19 12:00 Lactated Ringer's (Ringers, Lactated) 1,000 mls @ 125 mls/hr IV ASDIRECTED [facility] Stop: 08/24/19 18:00 Last Admin: 08/24/19 11:02 Dose: 125 mls/hr Lactated Ringer's (Ringers, Lactated) Confirm Administered Dose 1,000 mls @ as directed .ROUTE .STK-MED ONE Stop: 08/24/19 08:33 Iodine (Iodine 2% Mild Tincture) Confirm Administered Dose 30 ml .ROUTE .STK- MED ONE Stop: 08/24/19 07:42 Last Admin: 08/24/19 09:35 Dose: 18 ml Lidocaine/Sodium Bicarbonate (Buffered Lidocaine 1% In Ns 8.4%) 0.25 ml IDERM ONETIME PRN PRN Reason: Prior to IV Start Stop: 08/24/19 18:00 Last Admin: 08/24/19 07:25 Dose: 0.25 ml Midazolam HCl (Versed 1 Mg/Ml) Confirm Administered Dose 2 mg .ROUTE .STK-MED ONE Stop: 08/24/19 07:16 Miscellaneous Medication (Phenylephrine 1 Mg/10 Ml-Ns) Confirm Administered Dose 1 mg IV .STK-MED ONE Stop: 08/24/19 08:43 Non-Formulary Medication (Calcium/D3/Zinc/Copper/Wicho [Citracal-D3 Maximum Plus Caplt]) 2 tab PO DAILY [facility] Ondansetron HCl (Zofran) Confirm Administered Dose 4 mg .ROUTE .STK-MED ONE Stop: 08/24/19 09:32 Ondansetron HCl (Zofran) 4 mg IVPUSH ONETIME PRN PRN Reason: Nausea/Vomiting Stop: 08/24/19 12:00 Oxycodone HCl (Oxycontin) 10 mg PO ONETIME [facility] Stop: 08/24/19 14:00 Last Admin: 08/24/19 07:14 Dose: 10 mg Pregabalin (Lyrica) 50 mg PO ONETIME [facility] Stop: 08/24/19 14:00 Last Admin: 08/24/19 07:14 Dose: 50 mg Propofol (Diprivan 20 Ml) Confirm Administered Dose 400 mg .ROUTE .STK-MED ONE Stop: 08/24/19 07:15 Propofol (Diprivan 20 Ml) Confirm Administered Dose 400 mg .ROUTE .STK-MED ONE Stop: 08/24/19 09:30 Sodium Chloride (Saline Flush) 10 ml FLUSH ASDIRECTED PRN PRN Reason: Keep Vein Open Stop: 08/24/19 18:00 Tranexamic Acid (Cyklokapron) Confirm Administered Dose 1,000 mg .ROUTE .STK- MED ONE Stop: 08/24/19 07:42 Last Admin: 08/24/19 09:43 Dose: 1,000 mg Vancomycin HCl (Vancomycin) Confirm Administered Dose 1 gm .ROUTE .STK-MED ONE Stop: 08/24/19 07:42 Last Admin: 08/24/19 09:42 Dose: 1 gm - Exam Wound/Incisions: Dressing Dry and Intact General: Alert, Cooperative, No Acute Distress Lungs: Normal Respiratory Effort Extremities: Other (NVS intact for BLE. David's negative. Left thigh soft.) Sepsis Event Note - Evaluation Sepsis Screening Result: No Definite Risk - Focused Exam Vital Signs: Vital Signs Temp Pulse Resp BP Pulse Ox Pulse Ox 08/25/19 04:48 98.1 F 79 18 116/70 92 L 08/25/19 01:08 98.1 F 77 18 122/66 94 L 08/24/19 21:31 94 L Date Exam was Performed: 08/25/19 Time Exam was Performed: 08:18 - Problem List Review Problem List Initiated/Reviewed/Updated: Yes - My Orders Last 24 Hours: Active Orders 24 hr Category Date Time Status Pulse Oximetry [RC] ASDIRECTED Care 08/24/19 09:48 Active Ready for Discharge [RC] PER UNIT ROUTINE Care 08/25/19 08:12 Active Vital Signs [RC] Q15M Care 08/24/19 09:48 Inactive Acetaminophen [Tylenol] Med 08/24/19 20:06 Active 650 mg PO Q4H PRN Aspirin [Ecotrin] Med 08/25/19 09:00 Active 325 mg PO BID Cholecalciferol (Vitamin D3) [Vitamin D3] Med 08/25/19 09:00 Active 5,000 unit PO DAILY Docusate Sodium [Colace] Med 08/24/19 21:00 Active 100 mg PO BID Famotidine [Pepcid] Med 08/24/19 21:00 Active 20 mg PO Q12H Ketorolac [Toradol] Med 08/24/19 13:00 Active 15 mg IVPUSH Q6H PRN Loperamide [Imodium] Med 08/24/19 10:15 Active 2 mg PO ASDIRECTED PRN Multivitamins,Therapeutic [Thera] Med 08/25/19 09:00 Active 1 each PO DAILY Patient's Own Medication [Ptom] Med 08/24/19 21:00 Active 0 each PO BID ceFAZolin [Ancef] 2 gm Med 08/24/19 16:45 Active Premix Bag 1 bag IV Q8H lisinopriL [Prinivil] Med 08/25/19 09:00 Active 10 mg PO DAILY Medication Orders Acetaminophen (Tylenol) 650 mg PO Q4H PRN PRN Reason: Pain Last Admin: 08/25/19 05:06 Dose: 650 mg Admin: 08/25/19 00:28 Dose: 650 mg Admin: 08/24/19 20:25 Dose: 650 mg Aspirin (Ecotrin) 325 mg PO BID [facility] Bisacodyl (Dulcolax) 5 mg PO DAILY PRN PRN Reason: Constipation Cholecalciferol (Vitamin D3) 5,000 unit PO DAILY [facility] Docusate Sodium (Colace) 100 mg PO BID [facility] Last Admin: 08/24/19 20:25 Dose: 100 mg Famotidine (Pepcid) 20 mg PO Q12H [facility] Last Admin: 08/24/19 20:25 Dose: 20 mg Cefazolin Sodium/Dextrose 2 gm (/ Premix) 50 mls @ 100 mls/hr IV Q8H [facility] Stop: 08/25/19 09:14 Last Admin: 08/25/19 00:30 Dose: 100 mls/hr Infusion: 08/24/19 17:32 Dose: 100 mls/hr Admin: 08/24/19 17:02 Dose: 100 mls/hr Ketorolac Tromethamine (Toradol) 15 mg IVPUSH Q6H PRN PRN Reason: Pain Last Admin: 08/25/19 00:28 Dose: 15 mg Admin: 08/24/19 17:14 Dose: 15 mg Lisinopril (Prinivil) 10 mg PO DAILY [facility] Loperamide HCl (Imodium) 2 mg PO ASDIRECTED PRN PRN Reason: Diarrhea Magnesium Hydroxide (Milk Of Magnesia) 30 ml PO BID PRN PRN Reason: Constipation Morphine Sulfate (Morphine) 2 mg IVPUSH Q2H PRN PRN Reason: Breakthrough Pain Multivitamins (Thera) 1 each PO DAILY [facility] Naloxone HCl (Narcan) 0.1 mg IVPUSH Q5M PRN PRN Reason: Oversedation Ondansetron HCl (Zofran) 4 mg IVPUSH Q6H PRN PRN Reason: Nausea/Vomiting Oxycodone HCl (Oxycodone) 5 - 10 mg PO Q4H PRN PRN Reason: Pain Last Admin: 08/25/19 05:07 Dose: 10 mg Admin: 08/25/19 00:29 Dose: 10 mg Admin: 08/24/19 20:26 Dose: 10 mg Admin: 08/24/19 13:58 Dose: 10 mg Mesalamine [ (Mesalamine] 2.4 G) 0 each PO BID [facility] Last Admin: 08/24/19 21:50 Dose: Senna (Senna) 8.6 mg PO BID PRN PRN Reason: Constipation - Assessment Assessment (Free Text/Narrative):: POD#1 - left SCOTT - Plan Plan (Free Text/Narrative):: 1. Hgb 15.6. 2. 325mg ASA PO BID, frequent mobility, TEDs. 3. Discharge to home today. 4. Outpatient therapy. The pt's case was discussed with Dr. Garcia.
[2019-08-25] MEDS ORDERED: Aspirin 325 MG Tab.EC PO SCH (09:00)
[2019-08-25] MEDS ORDERED: COPPER PO SCH (09:00)
[2019-08-25] MEDS ORDERED: CALCIUM PO SCH (09:00)
[2019-08-25] MEDS ORDERED: Cholecalciferol (Vitamin D3) 5,000 UNIT Tab PO SCH (09:00)
[2019-08-25] MEDS ORDERED: Lisinopril 10 MG Tab PO SCH (09:00)
[2019-08-25] MEDS ORDERED: ZINC PO SCH (09:00)
[2019-08-25] MEDS ORDERED: MANGAN PO SCH (09:00)
[2019-08-25] MEDS ORDERED: Multivitamins,Therapeutic Tab PO SCH (09:00)
[2019-08-25] MEDS ORDERED: [UNRECOGNIZED DRUG - OTHER] PO SCH (09:00)
[2019-08-25] MEDS ORDERED: D3 PO SCH (09:00)
[2019-08-25] MEDS: Famotidine 20 MG Tab PO SCH (09:02)
[2019-08-25] MEDS: Docusate Sodium 100 MG Cap PO SCH (09:02)
--- NOTE | 2019-08-25 09:26 | PCM48HPAN ---
Post Anesthesia Note - EVALUATION WITHIN 48HRS OF ANESTHETIC Vital Signs in Normal Range: Yes Patient Participated in Evaluation: Yes Respiratory Function Stable: Yes Airway Patent: Yes Cardiovascular Function Stable: Yes Hydration Status Stable: Yes Pain Control Satisfactory: Yes Nausea and Vomiting Control Satisfactory: Yes Mental Status Recovered: Yes Vital Signs: Last Vital Signs Temp 36.7 C 08/25/19 08:53 Pulse 83 08/25/19 08:53 Resp 12 08/25/19 08:53 BP 119/70 08/25/19 09:01 Pulse Ox 92 L 08/25/19 08:53
[2019-08-25] MEDS: MESALAMINE 2.4 GM PO SCH (10:00)
--- NOTE | 2019-08-26 15:37 | PCM.OPNOTE ---
- General Post-Op/Procedure Note Date of Surgery/Procedure: 08/24/19 Operative Procedure(s): left total hip arthroplasty Pre Op Diagnosis: left hip osteoarthrosis Post-Op Diagnosis: Same Anesthesia Technique: Local, MAC, Spinal Primary Surgeon: Bharat Garcia Anesthesia Provider: Carmelo Lucas Hat Body Inspector: Kelsea Muhammad Hat Body Inspector: Sumi Garcia EBL in mLs: 500 Complications: None Condition: Good Free Text/Narrative:: 60 cup 10 stem 36+0 head
--- NOTE | 2019-08-27 12:40 | OR ---
DATE OF OPERATION: 08/24/2019 SURGEON: Bharat Garcia MD OPERATION PERFORMED: Left total hip arthroplasty. PREOPERATIVE DIAGNOSIS: Left hip osteoarthrosis. POSTOPERATIVE DIAGNOSIS: Left hip osteoarthrosis. ANESTHESIA: Local MAC with spinal. ANESTHESIA PROVIDER: Rose Mary Fritz. ASSISTANTS: 1. Kelsea Muhammad PA-C. 2. Sumi Garcia LPN. ESTIMATED BLOOD LOSS: 500 mL. COMPLICATIONS: None. CONDITION: Stable. IMPLANTS: 1. Pass Christian size 60 solid Tritanium II acetabular cup. 2. Pass Christian size 10 Accolade II stem. 3. Pass Christian size 36 +0 Biolox femoral head. DESCRIPTION OF PROCEDURE: The patient was identified in the preop holding area where the proper site was marked and identified by the surgeon. The patient was taken back to the operating theater, where after adequate anesthesia, the patient was placed in the right lateral decubitus position. An axillary roll was placed. Pegs were then placed and were well padded. The patient's gluteal fold was parallel to the floor. The left hip was then sterilely prepped and draped in the usual sterile fashion. OR time-out was performed. The patient received 2 g of IV Ancef. At this time, standard posterior incision was made centered over the greater trochanter. This was taken down to the IT band and gluteal fascia which was incised along the incisional length. Charnley retractor was then placed. Short external rotators identified, and takedown of the short external rotators as well as a capsulotomy was performed from the level of the piriformis down to the lesser trochanter. Hip was then dislocated. Neck cut was completed and found to be adequate. Attention was turned to the acetabulum. Anterior and posterior acetabular retractors were placed. Good visualization was had at this time. Circumferential removal of the labrum as well as the pulvinar was done. Starting with a 54 reamer, I was able to ream up to a 60 which was found to have good cancellous purchase and good bony bleeding bed. A 60 mm Tritanium II acetabular cup was impacted into place in proper position, and the 36 mm flat liner was impacted into place. Attention was turned to the femur. Femoral elevator was placed. Box chisel was used out laterally. Starter awl was placed down the canal. Starting with the 0 broach, I was able to broach up to a size 10 which was found to be rotationally and vertically stable. A 36 +0 head was then trialed. The trial components were found to have adequate spiritism of leg lengths and was stable throughout range of motion. Bone hook was used to dislocate the hip. Trial implants were removed, and the real implants were impacted into place with a size 10 Accolade II stem and a 36 +0 Biolox femoral head. At this time, the hip was then relocated. A #5 Ethibond suture was used for closure of the short external rotators and capsule. 1 L of dilute Betadine solution was irrigated through the hip along with 3 L of pulse lavage irrigation with Ancef. Topical tranexamic acid and vancomycin powder were applied. Periarticular injection was completed. A #2 barbed suture was then used for closure of the IT band and gluteal fascia, 2-0 Vicryl was used subcutaneously, and Prineo was used for the skin. The patient tolerated the procedure well and was sent to the PACU in stable condition. MMODAL /[id number]
== END 2019-08-25 12:45 | disposition home or self-care (01) | DRG 470 ==
LOC: JD.MS 08-24 06:56
PROVIDERS: ADMIT Orthopaedic Surgery; ATTEND Orthopaedic Surgery
PROC: 0SRB01Z Replacement of Left Hip Joint with Metal Synthetic Substitute, Open Approach (ICD-10-PCS; principal; 2019-08-24)
DX: M16.12 Unilateral primary osteoarthritis, left hip (principal); K83.09 Other cholangitis; K51.919 Ulcerative colitis, unspecified with unspecified complications; F41.9 Anxiety disorder, unspecified; F32.9 Major depressive disorder, single episode, unspecified; E11.9 Type 2 diabetes mellitus without complications; E78.00 Pure hypercholesterolemia, unspecified; I10 Essential (primary) hypertension; M81.0 Age-related osteoporosis without current pathological fracture; I49.3 Ventricular premature depolarization; K74.60 Unspecified cirrhosis of liver; H93.19 Tinnitus, unspecified ear; G56.00 Carpal tunnel syndrome, unspecified upper limb; C61 Malignant neoplasm of prostate; R31.9 Hematuria, unspecified; Z79.899 Other long term (current) drug therapy
CPT/HCPCS: 01214; 36415; 73501-26-LT; 73501-LT; 80053; 85027; 86850; 86900; 86901; 87641; 94760; 97110-GP; 97116-GP; 97161-GP; 97165-GO; 97530-GP; 97535-GO; A9270-GY; C1776; J0171; J0690; J0697; J1885; J2250; J2270; J2370; J2405; J2704; J3370; J3490; J7120